=== PATIENT | male | born 1930 | race Caucasian/White ===

== ENCOUNTER 2016-08-23 06:24 | Day surgery (SDC) | payer MEDICARE ==
[~2016-08-23] VITALS: Ht 172.7 cm; Wt 82.0 kg
[~2016-08-23 06:24] MED LIST: APIX5TAB PO; ASCO500T21 PO; ATOR80TA PO; BIMA2.5D4 OU; BRIM5DRO6 OU; CHOL100048 PO; CYAN10006 PO; DIGO125T PO; FISH OIL; INDA1.25 PO; LACTATED RINGERS 1,000 ML IV SCH; LINA5TAB PO; LSNP10T PO; LTN005OP2 OU; MAGN400T39 PO; MTP25TSR PO; OMEG1CAP61 PO; SODIUM CHLORIDE FLUSH 3 ML SYR IV PRN; TIMO10DR OU; VIT D; VITAMIN B; WRF1T PO; WRF5T PO
[2016-08-23 06:42] VITALS: BP 119/67
[2016-08-23] MEDS ORDERED: LIDOCAINE 4% TOPICAL 4.5 ML SYR ONE (06:47)
[2016-08-23] MEDS ORDERED: SIMETHICONE 40 MG/0.6 ML (MYLICON DROPS) ORAL SYRINGE ONE (06:47)
[2016-08-23] MEDS ORDERED: MIDAZOLAM 2 MG/2 ML (VERSED) VIAL ONE (07:10)
[2016-08-23] MEDS ORDERED: ALFENTANIL 500 MCG/ML (ALFENTA) 5 ML AMP IV ONE (07:10)
[2016-08-23] MEDS ORDERED: PROPOFOL 20 ML IV ONE (07:10)
[2016-08-23 07:59] VITALS: BP 97/50
[2016-08-23 08:17] VITALS: BP 106/56
--- NOTE | 2016-08-23 09:15 | OPERATIVE REPORT ---
DATE OF OPERATION: 08/23/2016 PRE-OPERATIVE DIAGNOSIS: Esophageal stricture. POST-OPERATIVE DIAGNOSIS: 1. Esophageal stricture. 2. Large hiatal hernia OPERATIVE PROCEDURE: Esophagogastroduodenoscopy with balloon dilatation of esophageal stricture. SURGEON: Apolinar Valdes MD ANESTHESIA: Monitored anesthesia care FINDINGS: 1. The stricture was noted at 33 cm with the diaphragmatic hiatus at 40 cm. 2. The stomach and duodenum were unremarkable as was the rest of the esophagus. INDICATIONS: The patient is an 86-year-old who is here today for dilatation of a stricture. He has had two episodes of a food bolus being stuck in his esophagus over this past year, most recently on . He has been off his Eliquis since August 20 in preparation for this procedure. DESCRIPTION OF PROCEDURE: The patient was informed of the risks and benefits and agreed to proceed. He was taken to the endoscopy room and a bite block was placed. Sedation was administered. The lighted endoscope was passed down the esophagus and into the stomach. Air was insufflated. The pylorus was cannulated and the first, second, and third portions of the duodenum were visualized. No abnormalities were seen. The scope was brought back into the stomach where the antrum, body and fundus were carefully inspected. No ulcers or inflammation were noted. Retroflexion revealed a large patulous diaphragmatic hiatus. This was located at 40 cm at the incisors, and the stricture was right at the GE junction, which was located at 33 cm. the rest of the esophagus appeared normal. The endoscopic balloon dilator was passed through the working channel of the scope and secured in position across the stricture. This was dilated first up to 15 mm for 2-1/2 minutes and then inspected. There was very minimal mucosal disruption. The balloon was inflated to 16.5 mm for 2-1/2 minutes and then taken down. This resulted in some bleeding from one side of the stricture that did not persist, and therefore we did not dilate any further. The balloon was removed. The scope was withdrawn. The patient tolerated the procedure without complications. He will resume hi Eliquis tomorrow and is to be maintained on Omeprazole 20 mg daily, if it is okay with his primary care physician.
== END 2016-08-23 08:34 | disposition home or self-care (01) ==
LOC: ASC 06:24
PROVIDERS: ATTEND Surgery
PROC: 0D758ZZ Dilation of Esophagus, Via Natural or Artificial Opening Endoscopic (ICD-10-PCS; principal; 2016-08-23)
DX: K22.2 Esophageal obstruction (principal); K44.9 Diaphragmatic hernia without obstruction or gangrene; I48.91 Unspecified atrial fibrillation; Z79.01 Long term (current) use of anticoagulants
CPT/HCPCS: 36415; 43249; 84132; A9270; C1726; J2250; J7120

== ENCOUNTER → 2016-10-09 | Outpatient (CLI) | payer MEDICARE, OTHER | LOC: RAD 13:18 | PROVIDERS: ATTEND Family Medicine | DX: I10 Essential (primary) hypertension (principal); I48.2 Chronic atrial fibrillation | CPT/HCPCS: 93306 ==

== ENCOUNTER 2016-11-02 10:52 | Emergency (ER) | payer MEDICARE, OTHER ==
[~2016-11-02] VITALS: Ht 172.7 cm; Wt 84.5 kg
[2016-11-02 11:00] VITALS: BP 123/54
[2016-11-02] MEDS ORDERED: SODIUM CHLORIDE 250 ML IV PRN (11:10)
[2016-11-02] MEDS ORDERED: SODIUM CHLORIDE FLUSH 10 ML SYR IV PRN (11:10)
[2016-11-02] MEDS ORDERED: KETOROLAC 15 MG/ML (TORADOL) 1 ML VIAL IV ONE (11:20)
[2016-11-02] MEDS ORDERED: ASPIRIN 81 MG CHEW (CHILDREN'S ASA) PO ONE (11:20)
[2016-11-02 11:31] LABS: MEAN CORPUSCULAR HGB CONC 33.4 g/dL (31.0-37.0); MEAN CORPUSCULAR VOLUME 94 FL (80-100); MEAN PLATELET VOLUME 9.9 FL (6.0-9.5); PLATELET COUNT 203 10^3uL (150-450); WHITE BLOOD COUNT 13.99 10^3uL (4.0-11.0)
[2016-11-02] MEDS: SODIUM CHLORIDE FLUSH 3 ML SYR IV PRN ×2 (11:34→11:44)
[2016-11-02 11:40] LABS: MEAN CORPUSCULAR HEMOGLOBIN 31.6 PG (26.0-34.0)
[2016-11-02 11:44] LABS: ALBUMIN 3.7 g/dL (3.4-5.0); ALKALINE PHOSPHATASE 87 U/L (38-126); ANION GAP 13.7 MEQ/L (3-15); BUN/CREATININE RATIO 14 (10-20); CALCULATED IONIZED CALCIUM 4.2 mg/dL (3.8-4.6); CREATINE KINASE 40 U/L (55-170); TOTAL PROTEIN 6.8 g/dL (6.4-8.5)
[2016-11-02 11:46] LABS: MAGNESIUM* 1.2 mg/dL (1.6-2.3)
--- NOTE | 2016-11-02 11:53 | NUR ---
BILATERAL BP CHECKS NOT PERFORMED AFTER OK RECEIVED FROM DR. TRINH.
[2016-11-02 11:55] LABS: BAND NEUTROPHILS % 0 % (0-6); EOSINOPHILS % 3 % (0-4); MONOCYTES # 2.1 #; MONOCYTES % 16 % (3-11); RBC MORPH NORMAL (NORMAL); SEGMENTED NEUTROPHILS % 67 % (51-67); TOTAL CELLS COUNTED 100
== END 2016-11-02 13:37 | disposition home or self-care (01) ==
LOC: EDUNIT# 10:52 → ED 10:54
DX: M25.522 Pain in left elbow (principal); Z95.0 Presence of cardiac pacemaker; Z79.899 Other long term (current) drug therapy; M79.632 Pain in left forearm; Z87.891 Personal history of nicotine dependence
CPT/HCPCS: 36415; 71010; 80053; 80162; 82550; 82553; 83735; 83880; 84484; 85025; 85610; 85730; 93005; 93971; 96374; 99285; A9270; J1885; 99283